=== PATIENT | female | born 1960 | race Caucasian/White ===

== ENCOUNTER 2018-09-12 12:04 | Outpatient (CLI) | payer OTHER ==
[~2018-09-12 12:04] MED LIST: ESTR0.5T PO; FLUO10CA7 PO; GABA-826 PO; SIMV5TAB14 PO; [UNRECOGNIZED DRUG - CODE]
== END 2018-09-12 23:59 | disposition home or self-care (01) ==
LOC: CFH 12:04
PROVIDERS: ATTEND Nurse Practitioner Family
DX: Z12.31 Encounter for screening mammogram for malignant neoplasm of breast (principal); N95.1 Menopausal and female climacteric states
CPT/HCPCS: 77063; 77067

== ENCOUNTER → 2018-10-13 | Outpatient (CLI) | payer OTHER | END | disposition home or self-care (01) | LOC: CFH 11:14 | PROVIDERS: ATTEND Nurse Practitioner Family | DX: M48.54XA Collapsed vertebra, not elsewhere classified, thoracic region, initial encounter for fracture (principal) | CPT/HCPCS: 72072 ==

== ENCOUNTER → 2018-12-09 | Outpatient (CLI) | payer OTHER ==
[~2018-12-09] MED LIST changes: +FLUO20TA25 PO; +GABA300C10 PO; +GABA600T7 PO; +PHENYTOIN PO; +SIMV20TA3 PO
[2018-12-09 09:34] LABS: BASOPHILS # (AUTO) 0.04 x10^3/uL (0-0.1); BASOPHILS % (AUTO) 0 % (0-1); EOSINOPHILS # (AUTO) 0.05 x10^3/uL (0-0.4); EOSINOPHILS % (AUTO) 1 % (1-7); LYMPHOCYTES # (AUTO) 1.72 x10^3/uL (1-3.4); LYMPHOCYTES % (AUTO) 17 % (22-44); MD NO; MEAN CORPUSCULAR HEMOGLOBIN 32.7 pg (27.0-34.8); MEAN CORPUSCULAR HGB CONC 33.2 g/dL (32.4-35.8); MEAN CORPUSCULAR VOLUME 98.7 fL (80-100); MEAN PLATELET VOLUME 8.9 fL (7.4-10.4); MONOCYTES # (AUTO) 0.67 x10^3/uL (0.2-0.8); MONOCYTES % (AUTO) 7 % (2-9); NEUTROPHILS # (AUTO) 7.42 x10^3/uL (1.8-6.8); NEUTROPHILS % (AUTO) 75 % (42-75); PLATELET COUNT 232 x10^3/uL (130-400); RED BLOOD COUNT 4.69 x10^6/uL (3.82-5.3); RED CELL DISTRIBUTION WIDTH 13.4 % (9.6-15.2)
[2018-12-09 09:47] LABS: INTERNATIONAL NORMALIZED RATIO 1.01 (0.93-1.1); PROTHROMBIN TIME 10.6 Seconds (9.6-11.5)
[2018-12-09 09:48] LABS: ANION GAP 8 mmol/L (5-15); CHLORIDE 107 mmol/L (98-107)
[2018-12-09 09:49] LABS: CREATININE 0.86 mg/dL (0.55-1.02)
== END | disposition home or self-care (01) ==
LOC: STAR 08:38
PROVIDERS: ATTEND Neurological Surgery
DX: Z01.818 Encounter for other preprocedural examination (principal); S22.000A Wedge compression fracture of unspecified thoracic vertebra, initial encounter for closed fracture; X58.XXXA Exposure to other specified factors, initial encounter; Y93.89 Activity, other specified; Y92.89 Other specified places as the place of occurrence of the external cause; Y99.8 Other external cause status
CPT/HCPCS: 36415; 80048; 85025; 85610; 85730

== ENCOUNTER 2018-12-20 06:13 | Day surgery (SDC) | payer OTHER ==
[~2018-12-20] VITALS: Ht 172.7 cm; Wt 67.4 kg
[2018-12-20] MEDS ORDERED: BUPIVACAINE/EPI 0.5% 1:200K ONE (06:54)
[2018-12-20 06:56] VITALS: BP 172/92
[2018-12-20] MEDS ORDERED: ACETAMINOPHEN 500 MG TABLET PO STA (06:59)
[2018-12-20] MEDS ORDERED: SCOPOLAMINE PATCH, 1.5MG PATCH.TD72 TD STA (06:59)
[2018-12-20] MEDS ORDERED: LACTATED RINGERS 1,000 ML IV SCH (06:59)
[2018-12-20] MEDS ORDERED: FENTANYL PF 250 MCG/5ML ONE (08:18)
[2018-12-20] MEDS ORDERED: MIDAZOLAM 1 MG/ML, 2ML ONE (08:18)
[2018-12-20] MEDS ORDERED: DEXAMETHASONE 4 MG/ML, 1ML ONE (08:22)
[2018-12-20] MEDS ORDERED: GLYCOPYRROLATE 0.2MG/1ML, 5ML ONE (08:22)
[2018-12-20] MEDS ORDERED: ONDANSETRON 2MG/ML, 2ML ONE (08:22)
[2018-12-20] MEDS ORDERED: PROPOFOL 10 MG/ML, 20ML ONE (08:22)
[2018-12-20] MEDS ORDERED: ROCURONIUM 10MG/ML,5ML ONE (08:22)
[2018-12-20] MEDS ORDERED: NEOSTIGMINE 1 MG/ML, 10ML ONE (08:22)
[2018-12-20] MEDS ORDERED: CEFAZOLIN 1,000 MG ONE (08:22)
[2018-12-20] MEDS ORDERED: HYDROmorphone 2 MG/ML, 1ML IVPush PRN (09:30)
[2018-12-20] MEDS ORDERED: hydrALAzine 20 MG/ML, 1ML IV PRN (09:30)
[2018-12-20] MEDS ORDERED: MEPERIDINE/PF 25MG/0.5ML IVPush PRN (09:30)
[2018-12-20] MEDS ORDERED: LABETALOL 5MG/ML, 20ML IV PRN (09:30)
[2018-12-20] MEDS ORDERED: FENTANYL PF 100 MCG/2ML IV PRN (09:30)
[2018-12-20] MEDS ORDERED: ONDANSETRON 2MG/ML, 2ML IV PRN (09:30)
[2018-12-20] MEDS ORDERED: PROMETHAZINE 12.5 MG SUPP PR PRN (09:30)
[2018-12-20] MEDS ORDERED: MORPHINE SULFATE 4 MG/ML, 1ML IVPush PRN (09:30)
[2018-12-20] MEDS ORDERED: PROMETHAZINE 25 MG SUPP PR PRN (09:30)
[2018-12-20] MEDS ORDERED: OXYcodone 5 MG/5 ML ORAL.SOL UDC PO PRN (09:30)
[2018-12-20] MEDS ORDERED: PROMETHAZINE 25 MG/ML, 1ML IV PRN (09:30)
[2018-12-20] MEDS ORDERED: PROMETHAZINE 25 MG/ML, 1ML IM PRN ×2 (09:30)
[2018-12-20] MEDS ORDERED: HALOPERIDOL 5 MG/ML IV PRN (09:30)
[2018-12-20] MEDS ORDERED: ONDANSETRON ODT 8 MG PO PRN (09:30)
[2018-12-20] MEDS ORDERED: OMNIPAQUE 180 MG/ML, 20ML VIAL IT ONE (10:14)
[2018-12-20] MEDS ORDERED: OMNIPAQUE 180 MG/ML, 20ML VIAL ONE (11:21)
== END 2018-12-20 13:30 | disposition home or self-care (01) ==
LOC: OUT 06:13
PROVIDERS: ATTEND Neurological Surgery
DX: M48.54XA Collapsed vertebra, not elsewhere classified, thoracic region, initial encounter for fracture (principal); M54.9 Dorsalgia, unspecified; G40.909 Epilepsy, unspecified, not intractable, without status epilepticus; E78.5 Hyperlipidemia, unspecified; F41.8 Other specified anxiety disorders; F17.210 Nicotine dependence, cigarettes, uncomplicated; Z79.890 Hormone replacement therapy; Z79.899 Other long term (current) drug therapy; Z88.0 Allergy status to penicillin; Z88.8 Allergy status to other drugs, medicaments and biological substances; Z98.890 Other specified postprocedural states; Z83.3 Family history of diabetes mellitus; Z82.49 Family history of ischemic heart disease and other diseases of the circulatory system; Z82.3 Family history of stroke; Z80.9 Family history of malignant neoplasm, unspecified
CPT/HCPCS: 22513; 22515; 36415; 72072; 86850; 86900; 88305; 88311; C1713; J0690; J1100; J2250; J2405; J2704; J2710; J3010; J7120; Q9965

== ENCOUNTER 2019-11-07 16:11 | Emergency (ER) | payer OTHER ==
[~2019-11-07] VITALS: Ht 172.7 cm; Wt 66.3 kg
[~2019-11-07 16:11] MED LIST changes: +FLUO10CA14 PO; -FLUO10CA7 PO; +SIMV20TA19 PO; -SIMV20TA3 PO
[2019-11-07 16:18] VITALS: BP 148/86
--- NOTE | 2019-11-07 16:31 | NUR ---
THIS IS A 58 YO F W/ C/O LT EYE/FACIAL SWELLING THAT STARTED YESTERDAY MORNING. PT DENIES NEW MEDS OR FOODS INTRODUCED TO DIET. PT CONVERSING IN FULL SENTENCES W/O DIFFICULTY. PT STATES SHE WOKE UP THIS MORNING AND EYE WAS SWOLLEN SHUT. PT RESP EVEN AND UNLABORED, NADN. PT RESTING ON [facility] W/ CALL LIGHT IN REACH. AWAITING ED EVAL.
== END 2019-11-07 17:18 | disposition home or self-care (01) ==
LOC: ED 17:00
DX: L03.211 Cellulitis of face (principal); R51 Headache
CPT/HCPCS: 99283